=== PATIENT | male | born 1995 | race Caucasian/White ===

== ENCOUNTER 2021-09-05 12:03 | Emergency (ER) | payer SELFPAY ==
[2021-09-05 12:04] VITALS: BP 145/103; PULSE 85; RESP 18; TEMP 36.1; O2SAT 99; BMI 29.2
--- NOTE | 2021-09-05 12:59 | EX.ED.DYSGE1 ---
HPI History of Present Illness Chief Complaint: Cold Sx Detail of Chief Complaint: Main reason for presentation is sore throat Informant: patient Onset/Context/Timing Onset: Days (2 to 3 days ago) Context: Sudden Onset Timing: Continuous Quality: Pain Location: Posterior pharynx Current Severity: Mild Maximum Severity: Moderate Worsened by: Swallowing solids or liquids Relieved by: Nothing Associated Symptoms Associated Symptoms: Respiratory symptoms as well as nausea, vomiting or diarrhea Narrative Narrative: Patient is a 25-year-old male who presents with viral symptoms started 2 to 3 days ago. He initially complained of rhinorrhea, congestion and sore throat with nonproductive cough. Last evening he vomited twice and had 2 loose stools. There was no blood or mucus in the stool. There is no hematemesis. There is no documented fever. Patient denies headache, visual, ocular auditory symptoms. Patient denies neck pain or neck stiffness. Patient denies photophobia. Patient denies rash. Patient does smoke marijuana once to twice a day. He also smokes 4 to 5 cigarettes a day. He has not had an alcoholic beverage in months. Prior similar symptoms: No Recent Illness/Hospitalization: No PFSH PFSH Medical History no medical history no medical history Allergy/AdvReac Type Severity Reaction Status Date / Time prednisone AdvReac Hives Verified 09/05/21 12:37 Surgical History no surgical history no surgical history Social History (Updated 09/05/21 @ 13:[address] Julius Romo MD) household members: none Smoking Status: Current every day smoker alcohol intake: current substance use type: marijuana ROS ROS ED Constitutional Constitutional ED: Denies chills, fever(s), subjective, sweats or weight loss Eyes Eyes: Denies blurry vision, change in vision or diplopia ENT ENT ED: Reports rhinorrhea and sore throat; Denies ear pain Cardiovascular Cardiovascular: Denies chest pain, orthopnea, palpitations, paroxysmal nocturnal dyspnea or racing heartbeat Respiratory/Chest Respiratory/Chest: Reports cough; Denies dyspnea, dyspnea on exertion, orthopnea, paroxysmal nocturnal dyspnea or sputum Gastrointestinal Gastrointestinal: Reports diarrhea, nausea and vomiting; Denies abdominal pain Genitourinary Genitourinary ED: Denies dysuria, hematuria or urinary frequency Musculoskeletal Musculoskeletal: Denies arthralgias, back pain, myalgias or neck pain Integumentary Denies rash Neurologic Neurologic: Denies headache(s), paresthesias or weakness Endocrine Endocrinology: Denies polydipsia, polyphagia or polyuria EXAM Physical Exam Const Vital Signs: 09/05/21 12:04 09/05/21 12:38 09/05/21 14:46 Temperature 97 F L Temperature Source Temporal Pulse Rate 85 80 Respiratory Rate 18 14 Respiratory Effort Normal Non-Labored Respiratory Depth Normal Respiratory Pattern Normal Blood Pressure 145/103 H 123/67 H Blood Pressure Mean 117 85 Pulse Ox 99 100 Oxygen Delivery Method Room Air Room Air Room Air Patient has tobacco/marijuana odor to his breath. Positive well nourished and well developed General Appearance ED: well developed and NAD; Negative for cyanotic, diaphoretic or pallor HEENT Reports TM's clear and dry mucous membranes HEENT Narrative: Uvula midline. Slight erythema. There is no exudate. There is no angioedema. Negative for trauma or tenderness Tympanic Membrane ED: Yes TM's clear Mouth ED: Yes dry mucous membranes Mouth: dry mucous membranes Eyes PERRL and EOMs intact bilaterally General Eye ED: Negative for pale conjunctiva or scleral icterus Neck no lymphadenopathy, supple and no JVD Neck Narrative: Trachea is midline. There is no in-store expiratory stridor. Resp normal respiratory effort and clear to auscultation bilaterally Cardio regular rate, regular rhythm, S1 normal heart sound, S2 normal heart sound and no murmurs GI normal to inspection, nondistended, normoactive bowel sounds, non-tender and non-distended Palpation: soft Back/Spine no CVA tenderness Cervical Spine: Negative for cervical spine tenderness Thoracic Spine / Upper Back: Negative for thoracic spinal tenderness or paraspinal muscle tenderness Extremity normal to inspection General Extremety ED: Negative for edema or tenderness General Extremity: Negative for edema Neuro oriented x3 and no sensory deficits noted Sensorium / Orientation: alert Motor Exam: strength 5/5 throughout Psych mental status grossly normal Skin no rashes or lesions noted and no wounds General Skin Exam: Negative for jaundice or pallor MDM MDM MDM Narrative Medical decision making narrative: Patient presents with viral-like symptoms. Clinically is dehydrated. A liter of normal saline was ordered and Zofran. Will reassess in 30 to 60 minutes. Patient feels much better. Plan patient will be discharged home with a work excuse. Discharge Plan Triage Chief Complaint: Cold Sx ED Provider: Romo,Julius Dx/Rx/DC Orders Clinical Impression: Systemic viral illness, Nausea vomiting and diarrhea, Acute dehydration Instructions: ED Viral Syndrome (Adult) Primary Care Provider: Care Physician,No Primary Referrals: Debbie Coto [NON-STAFF] - As Needed Care Physician,No Primary [Primary Care Provider] - Disposition Disposition: Home, Self Care
--- NOTE | 2021-09-05 13:16 | CM.ED ---
SW Note Referral Source: Case Find Referral Reason: NO PCP and no insurance SW met with patient. Patient confirms no PCP and no insurance. SW provided him with financial resource packet and [facility] Healthcare Provider Directory. SW remains available if needs arise. RN updated Plan: resources provided Deonna DEMARCO
[2021-09-05] MEDS: 0.9% Normal Saline 1,000 ML 1000 ML IV (13:23)
[2021-09-05] MEDS: Ondansetron 4 MG/2 ML Vial IV (13:23)
[2021-09-05 14:46] VITALS: BP 123/67; PULSE 80; RESP 14; O2SAT 100
== END 2021-09-05 15:59 | disposition home or self-care (01) ==
PROVIDERS: Emergency Provider Emergency Medicine; Visit Provider Emergency Medicine
DX: B34.9 Viral infection, unspecified (principal); E86.0 Dehydration; F17.210 Nicotine dependence, cigarettes, uncomplicated
CPT/HCPCS: 96361; 96374; 99283; J7030; A4216; J2405

== ENCOUNTER 2021-09-11 17:04 | Emergency (ER) | payer SELFPAY ==
[2021-09-11 17:05] VITALS: BP 128/83; PULSE 93; RESP 16; TEMP 36.4; O2SAT 100; BMI 28.8
--- NOTE | 2021-09-11 17:20 | ED.VIS.DENTA ---
HPI History of Present Illness Chief Complaint: Dental Detail of Chief Complaint: Dental pain x2 days Informant: patient Narrative Narrative: Patient presents to the emergency department complaint of dental pain is started 2 days ago. Patient states that one of his left upper molars broke 2 weeks ago but did not have pain until 2 days ago. He denies any fever. He denies chills or sweats. He does not have a dentist or primary care physician. Prior similar symptoms: No PFSH PFSH Home Medications clindamycin HCl [Cleocin HCl] 300 mg PO Q6H #40 capsule 09/11/21 [Rx Last Taken Unknown] hydrocodone-acetaminophen 1 tab PO Q4H PRN PRN 2 Days #10 tablet 09/11/21 [Rx Last Taken Unknown] Allergy/AdvReac Type Severity Reaction Status Date / Time prednisone AdvReac Hives Verified 09/11/21 17:05 Social History (Updated 09/05/21 @ 13:[address] Julius Romo MD) household members: none Smoking Status: Current every day smoker tobacco type: cigarettes alcohol intake: current substance use type: marijuana ROS ROS ED Constitutional Constitutional ED: Reports systems reviewed and no addt'l complaints, except as documented; Denies body ache(s), change in weight or chills Eyes Eyes: Denies acute decrease in peripheral vision, change in vision, double vision or loss of vision ENT ENT ED: Reports none and other Details: Dental pain ; Denies ear pain, lip swelling, loss taste/smell, neck pain, otalgia or sore throat Cardiovascular Cardiovascular: Reports none; Denies abdominal pain, chest pain with activity, leg edema, lightheadedness, palpitations, rapid heart rate or syncope Respiratory/Chest Respiratory/Chest: Reports none; Denies change in mental status, dry cough, dyspnea, hemoptysis, shortness of breath at rest or shortness of breath with exertion Gastrointestinal Gastrointestinal: Reports none; Denies abdominal pain, change in stool character, diarrhea, hematemesis, hematochezia, melena, rectal bleeding or vomiting Genitourinary Genitourinary ED: Reports none; Denies abdominal discomfort, anuria, dysuria, genital pain or polyuria Musculoskeletal Musculoskeletal: Reports none; Denies arthralgias, back pain, difficulty walking, extremity pain, muscle weakness or myalgias Integumentary Reports none; Denies abscess or rash Neurologic Neurologic: Reports none; Denies abnormal gait, confusion, focal weakness, frequent falls, headache(s), loss of vision, numbness, paresthesias, radicular pain, vertigo or weakness Psychiatric Psychiatric: Reports systems reviewed and no addt'l complaints, except as documented and none; Denies behavioral changes, confusion, difficulty concentrating, hallucinations, suicidal ideation, tactile hallucinations or visual hallucinations Endocrine Endocrinology: Denies none, cold intolerance, excessive sweating, fatigue or heat intolerance Hematologic/Lymphatic Hematologic/Lymphatic: Reports none; Denies anemia, easy bleeding or easy bruising Allergic/Immunologic Allergic/Immunologic ED: Denies as per HPI, none, lip swelling, mouth swelling, throat swelling, tongue swelling or hives EXAM Physical Exam Const Vital Signs: 09/11/21 17:05 Temperature 97.5 F L Temperature Source Temporal Pulse Rate 93 Respiratory Rate 16 Blood Pressure 128/83 H Blood Pressure Mean 98 Pulse Ox 100 Oxygen Delivery Method Room Air Positive well nourished and well developed General Appearance ED: well developed and NAD HEENT Reports TM's clear and moist mucous membranes HEENT Narrative: Dentition-patient has a broken and carried left upper molar #14 less tender to palpation. There is no gingival erythema or abscess noted. Patient has also multiple other dental caries. There is no facial erythema or cellulitis. No trismus on exam. normocephalic and atraumatic; Negative for trauma or tenderness Tympanic Membrane ED: Yes TM's clear Eyes PERRL and EOMs intact bilaterally General Eye ED: Negative for pale conjunctiva or scleral icterus Neck no lymphadenopathy, supple and no JVD General: Negative for tenderness Chest Wall inspection of chest normal and palpation of chest normal Chest: Negative for tenderness Resp normal respiratory effort and clear to auscultation bilaterally Effort and Inspection: Negative for respiratory distress or pain with movement Auscultation: Negative for rhonchi, wheezes or diminished lung sounds Cardio regular rate, regular rhythm, S1 normal heart sound, S2 normal heart sound and no murmurs Peripheral Pulses: pulses 2+ throughout GI normal to inspection, nondistended, normoactive bowel sounds, soft to palpation, non-tender, non-distended and no masses Back/Spine no CVA tenderness and no thoracic nor lumbar tenderness Extremity normal to inspection General Extremety ED: Negative for edema General Extremity: Negative for edema Neuro oriented x3, CN's II-XII intact bilaterally, no sensory deficits noted and gait normal Sensorium / Orientation: awake, alert, oriented to person, oriented to place and oriented to time Motor Exam: strength 5/5 throughout and strength abnormal Psych mental status grossly normal Skin no rashes or lesions noted and no wounds MDM MDM MDM Narrative Medical decision making narrative: Patient will be started on clindamycin and given a few [place] for pain. He is given a list of dentists in the area to follow-up with. Discharge Plan Triage Chief Complaint: Dental ED Provider: Allison Mccartney Dx/Rx/DC Orders Clinical Impression: Pain, dental, Dental caries Instructions: ED Dental Pain, ED Dental Cavity Prescriptions: New clindamycin HCl [Cleocin HCl] 300 MG capsule 300 mg PO Q6H Qty: 40 RF: 0 hydrocodone-acetaminophen [hydrocodone-acetaminophen] 1 TABLET tablet 1 tab PO Q4H PRN PRN (Reason: Pain) 2 Days Qty: 10 RF: 0 Primary Care Provider: Care Physician,No Primary Referrals: Care Physician,No Primary [Primary Care Provider] - Activity Restrictions/Additional Instructions: See a dentist at the earliest possible time Disposition Disposition: Home, Self Care
== END 2021-09-11 17:38 | disposition home or self-care (01) ==
LOC: ED 17:32
PROVIDERS: Emergency Provider Emergency Medicine; Visit Provider Emergency Medicine
DX: K02.9 Dental caries, unspecified (principal); F17.210 Nicotine dependence, cigarettes, uncomplicated
CPT/HCPCS: 99282

== ENCOUNTER 2022-01-30 22:41 | Emergency (ER) | payer SELFPAY ==
[2022-01-30 22:42] VITALS: BP 170/123; PULSE 114; RESP 18; TEMP 36.3; O2SAT 97; BMI 31.0
--- NOTE | 2022-01-30 22:51 | ED.VIS.DENTA ---
HPI History of Present Illness Chief Complaint: Dental Detail of Chief Complaint: Toe pain after biting down on something 1.5 hours ago Informant: patient Onset/Context/Timing Onset: Hours Context: Sudden Onset Timing: Continuous Quality: Pain Location: Upper right molar Current Severity: Severe Maximum Severity: Severe Worsened by: Air Relieved by: - (Nothing) Associated Symptoms Assocated Symptom - Dental: Negative for fever, jaw swelling, face swelling, cold sensitivity or hot sensitivity Narrative Narrative: Patient is a 26-year-old male presents with abrupt onset of dental pain after he bit down on something. States the pain started immediately. He has no history of medic fever, heart murmur, SBE or being immune suppressed. He has no allergies to pain medicine. He denies fever, chills night sweats. Prior similar symptoms: No Recent Illness/Hospitalization: No PFSH PFSH Medical History no medical history no medical history Home Medications clindamycin HCl 300 mg capsule (Cleocin HCl) 300 mg PO Q6H #40 CAPSULES 09/11/21 [Rx Last Taken Unknown] hydrocodone-acetaminophen 5-325mg 5mg-325mg 1 tab PO Q4H PRN PRN Pain 2 days #10 TABLETS 09/11/21 [Rx Last Taken Unknown] naproxen 500 mg tablet 500 mg PO BID #14 tabs 01/30/22 [Rx Last Taken Unknown] oxycodone-acetaminophen 5 mg-325 mg tablet 1 tab PO Q6H PRN PRN Pain 3 days #12 TABLETS 01/30/22 [Rx Last Taken Unknown] Allergy/AdvReac Type Severity Reaction Status Date / Time prednisone AdvReac Hives Verified 01/30/22 22:42 Surgical History no surgical history Social History household members: none Smoking Status: Current every day smoker tobacco type: cigarettes alcohol intake: current substance use type: marijuana ROS ROS ED Constitutional Constitutional ED: Denies chills, fever(s), subjective, sweats or weight loss Eyes Eyes: Denies blurry vision or change in vision ENT ENT ED: Reports other Details: Dental pain as described in the HPI narrative ; Denies ear pain, rhinorrhea or sore throat Cardiovascular Cardiovascular: Reports other Details: Per HPI narrative Gastrointestinal Gastrointestinal: Denies nausea or vomiting Psychiatric Psychiatric: Reports anxiety Hematologic/Lymphatic Hematologic/Lymphatic: Denies easy bleeding or easy bruising EXAM Physical Exam Const Vital Signs: 01/30/22 22:42 Temperature 97.4 F L Temperature Source Temporal Pulse Rate 114 H Respiratory Rate 18 Blood Pressure 170/123 H Blood Pressure Mean 138 Pulse Ox 97 Oxygen Delivery Method Room Air Positive well nourished, well developed and obese Constitutional Narrative: Patient in obvious discomfort General Appearance ED: well developed Nutritional Appearance: obese HEENT HEENT Narrative: Head is atraumatic normocephalic. There is no pain the patient over the left or right TMJ with opening closing of his mouth. Nares patent. He does have slight drainage. Patient fractured tooth #2. Mouth ED: Yes lips normal, Yes tongue normal, Yes salivary gland normal and Yes oral and palatal mucosa abnormal Mouth: lips normal, tongue normal, salivary gland normal and oral and palatal mucosa abnormal Throat: posterior oropharynx normal Eyes PERRL and EOMs intact bilaterally General Eye ED: Negative for pale conjunctiva or scleral icterus Neck no lymphadenopathy, supple and no JVD Neck Narrative: Trachea is midline. There is no inspiratory expiratory stridor. Lymph Lymphatic: no lymphadenopathy noted and lymphadenopathy Resp normal respiratory effort and no retractions Cardio regular rate, regular rhythm, S1 normal heart sound, S2 normal heart sound and no murmurs Neuro oriented x3 and CN's II-XII intact bilaterally Sensorium / Orientation: alert Psych Mood & Affect: anxious Skin no rashes or lesions noted and no wounds MDM MDM MDM Narrative Medical decision making narrative: Patient has pain because of fractured tooth with exposure of the pulp. Patient was treated with oral meds. He was given dental referral sheet. Recommended going to start him in dental clinic since he may walk-in in the morning. Discharge Plan Triage Chief Complaint: Dental ED Provider: Julius Romo Dx/Rx/DC Orders Clinical Impression: Fracture, tooth, Pain, dental Instructions: ED Dental Trauma Prescriptions: New oxycodone-acetaminophen [oxycodone-acetaminophen] 5-325 mg tablet 1 tab PO Q6H PRN PRN (Reason: Pain) 3 Days Qty: 12 0RF naproxen 500 mg tablet 500 mg PO BID Qty: 14 0RF No Action clindamycin HCl [Cleocin HCl] 300 MG capsule 300 mg PO Q6H Qty: 40 0RF hydrocodone-acetaminophen [hydrocodone-acetaminophen] 1 TABLET tablet 1 tab PO Q4H PRN PRN (Reason: Pain) 2 Days Qty: 10 0RF Primary Care Provider: Care Physician,No Primary Referrals: Care Physician,No Primary [Primary Care Provider] - Activity Restrictions/Additional Instructions: Recommend going to start [facility] walk-in dental clinic tomorrow morning. If you are unable to be seen recommend calling dentist on the dental sheet. Disposition Disposition: Home, Self Care
[2022-01-30] MEDS: oxyCODONE 5 MG Tablet PO (22:54)
[2022-01-30] MEDS: Naproxen 250 MG Tablet 500 MG PO (22:54)
== END 2022-01-30 23:15 | disposition home or self-care (01) ==
PROVIDERS: Emergency Provider Emergency Medicine; Visit Provider Emergency Medicine
DX: S02.5XXA Fracture of tooth (traumatic), initial encounter for closed fracture (principal); F17.210 Nicotine dependence, cigarettes, uncomplicated; F12.90 Cannabis use, unspecified, uncomplicated; E66.9 Obesity, unspecified; X58.XXXA Exposure to other specified factors, initial encounter
CPT/HCPCS: 99283